=== PATIENT | male | born 1995 | race African-American/Black ===

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

== ENCOUNTER 2018-01-02 10:13 | Emergency (ER) | payer OTHER ==
[~2018-01-02] VITALS: Ht 175.3 cm; Wt 77.1 kg
[~2018-01-02 10:13] MED LIST changes: +MAGIC MOUTHWASH SWISH&SPIT
[2018-01-02 10:25] VITALS: BP 140/74
[2018-01-02] MEDS ORDERED: TRIAMCINOLONE A80 G2 TOP (10:33)
== END 2018-01-02 19:01 | disposition home or self-care (01) ==
LOC: ER 10:13
DX: L30.1 Dyshidrosis [pompholyx] (principal); J45.909 Unspecified asthma, uncomplicated; Z88.0 Allergy status to penicillin